=== PATIENT | male | born 1990 | race Caucasian/White ===

== ENCOUNTER 2020-04-11 03:25 | Emergency (ER) | payer MEDICAID ==
[~2020-04-11] VITALS: Ht 177.8 cm; Wt 88.9 kg
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
[2020-04-11] MEDS ORDERED: KETOROLAC TROMETHAMINE INJ 60 MG/2 ML VIAL IM ONE (03:48)
[2020-04-11] MEDS: KETOROLAC TROMETHAMINE INJ 60 MG/2 ML VIAL IM ONE (03:56)
--- NOTE | 2020-04-11 05:03 | NUR ---
Patient discharged to home in stable condition. Written and verbal after care instructions given. Patient verbalizes understanding of instruction and rx. Pt ambulated out of [facility]. Took a taxi home.
[2020-04-11 05:05] VITALS: BP 139/88
== END 2020-04-11 05:06 | disposition home or self-care (01) ==
LOC: ER 03:28 → EDSEX 03:28 → ER 05:06
DX: M54.5 Low back pain (principal); V49.59XA Passenger injured in collision with other motor vehicles in traffic accident, initial encounter; Y93.89 Activity, other specified; Y92.488 Other paved roadways as the place of occurrence of the external cause; Y99.8 Other external cause status
CPT/HCPCS: 72100; 72220; 96372; 99284; J1885